=== PATIENT | male | born 1985 | race Caucasian/White ===

== ENCOUNTER 2020-07-16 04:00 | Emergency (ER) | payer OTHER ==
[~2020-07-16] VITALS: Ht 188 cm; Wt 127.0 kg
[~2020-07-16 04:00] MED LIST: CITA40TA12 PO; LISI1TAB23 PO; LISI1TAB39 PO; LORA-448 PO; METO-237 PO
--- NOTE | 2020-07-16 04:05 | NUR ---
ARRIVAL PT ARRIVED AMBULATORY TO ER 4 WITH C/O LEFT EYE PAIN. PT STATES GOT POWER STEERING FLUID IN EYE ON Friday07/14/20. STATES PAIN STARTED YESTERDAY AT 1900. LEFT EYE IS RED AND SWOLLEN. PT RATES PAIN 6-11/11. EDP NOTIFIED OF ARRIVAL.
[2020-07-16 04:06] VITALS: BP 155/96
[2020-07-16] MEDS ORDERED: TETRACAINE 0.5% EYE DROPS ONE (04:12)
[2020-07-16] MEDS ORDERED: FUL-GLO OP ONE (04:12)
--- NOTE | 2020-07-16 04:27 | ER.PDOC ---
General Chief Complaint: Eye Problems Stated Complaint: EYE PAIN Time seen by MD: 04:22 Source: patient Exam Limitations: no limitations History of Present Illness Initial Comments Foreign body sensation and left eye pain since last night. No eye discharge. No matting. Patient has flushed the left eye several times since last night. Timing/Duration: gradual Associated Symptoms: pian Location: left eye Severity: moderate Context: foreign body Where: home Allergies: Coded Allergies: vancomycin (Verified Allergy, Mild, RASH, 12/12/12) Cephalexin Monohydrate (Verified Adverse Reaction, NAUSEA VOMITING, 06/17/13) Home Meds Reported Medications Metoprolol Succinate (METOPROLOL SUCCINATE) 50 Mg Tab.er.24h, 50 MG PO DAILY 10/17/13 Lorazepam (ATIVAN) 1 Mg Tablet, 1 MG PO PRN for ANXIETY, TABLET 10/17/13 Lisinopril/Hydrochlorothiazide (LISINOPRIL-HCTZ 20-12.5 MG TAB) 1 Each Tablet, 1 EACH PO DAILY, TABLET 10/17/13 Citalopram Hydrobromide (CELEXA) 40 Mg Tablet, 40 MG PO DAILY, TABLET 10/17/13 Past Medical History Medical History: no pertinent history Surgical History: other Family History Significant Family History: no pertinent family hx Social History Smoking: non-smoker Alcohol Use: occassionally Drug Use: none Constitutional: no symptoms reported Eyes: see HPI Mouth: no symptoms reported Throat: no symptoms reported Respiratory: no symptoms reported Cardiovascular: no symptoms reported Gastrointestinal: no symptoms reported All Other Systems: Reviewed and Negative Physical Exam General Appearance: alert, no distress Visual Acuity: no globe trauma Eyelid: nml inspection Conjunctiva/Sclera: (L) injected Corneas: exam w/flurescein (L) (no corneal abrasion) EOM's: intact, no nystagmus Pupils: PERRL, nml accommodation Head/ENT: nml inspection, pharynx nml Skin Exam: Normal Color, Warm/Dry Neck/Back: nml inspection, painless ROM Resp/CVS: no resp distress, lungs clear, heart sounds nml, reg. rate & rhythm Abdomen: non-tender, no organomegaly NEURO/PSYCH: oriented X3, mood/effect nml Results/Orders Results/Orders Orders - KRYSTIAN ALLEN MD Fluorescein Sodium (Ful-Nataliya) (07/16/20 04:12) Tetracaine Hcl/Pf (Tetracaine 0.5% Eye D (07/16/20 04:12) Vital Signs Date Time Temp Pulse Resp B/P (MAP) Pulse Ox O2 Delivery O2 Flow Rate FiO2 07/16/20 04:06 98.4 77 18 155/96 (115) 98 C Pap 07/16/20 04:06 98.4 77 18 98 07/16/20 04:06 98.4 77 18 Progress Progress No foreign body seen. Counseled patient that he will need to follow-up with habitat conservation planner tomorrow. He voiced understanding. No matting or eye discharge. No signs of infection. ER DEPART Departure Time of Disposition: 04:25 Disposition: 01 HOME, SELF-CARE Impression: Primary Impression: Acute eye pain Additional Impression: Pain, eye, left Condition: Stable Referrals: PCP,UNKNOWN (PCP) PRIMARY CARE PROVIDER Additional Instructions: Follow-up with Batterboard Setter tomorrow Return to ED if worsening pain or concerns Duration or Time Spent with Pa: 10 min Problem Qualifiers KRYSTIAN ALLEN MD Jul 16, 2020 04:27
[2020-07-16 04:37] VITALS: BP 172/84
== END 2020-07-16 04:35 | disposition home or self-care (01) ==
LOC: ER 04:00
DX: H57.12 Ocular pain, left eye (principal); Z79.899 Other long term (current) drug therapy; Z88.1 Allergy status to other antibiotic agents
CPT/HCPCS: 99283

== ENCOUNTER 2022-01-14 09:51 | Emergency (ER) | payer SELFPAY ==
[~2022-01-14] VITALS: Ht 188 cm; Wt 122.5 kg
[~2022-01-14 09:51] MED LIST changes: -LISI1TAB23 PO; +LISI1TAB37 PO
[2022-01-14 10:02] VITALS: BP 150/92
--- NOTE | 2022-01-14 10:07 | NUR ---
Arrival Patient arrived ambulatory, does not seem in distress. Complains of left hand pain from injury that occured one hr ago at work. MD at bedside assessing, Vital taken as charted.
--- NOTE | 2022-01-14 10:08 | ER.PDOC ---
General Chief Complaint: Requesting Medical Care Stated Complaint: HAND INJURY Time seen by MD: 10:01 Source: patient History of Present Illness Initial Comments Using a heavy hammer on diesal truck. The hammer rebounded and hit dorso-lateral left hand Occurred: just prior to arrival Where: work Severity: moderate Exacerbated By: movement of Allergies: Coded Allergies: vancomycin (Verified Allergy, Mild, RASH, 12/12/12) Cephalexin Monohydrate (Verified Adverse Reaction, Unknown, NAUSEA VOMITING, 01/14/22) Home Meds Reported Medications Metoprolol Succinate (METOPROLOL SUCCINATE) 50 Mg Tab.er.24h, 50 MG PO DAILY 10/17/13 Lorazepam (ATIVAN) 1 Mg Tablet, 1 MG PO PRN for ANXIETY, TABLET 10/17/13 Lisinopril/Hydrochlorothiazide (LISINOPRIL-HCTZ 20-12.5 MG TAB) 1 Each Tablet, 1 EACH PO DAILY, TABLET 10/17/13 Citalopram Hydrobromide (CELEXA) 40 Mg Tablet, 40 MG PO DAILY, TABLET 10/17/13 Past Medical History Medical History: no pertinent history, other (anxiety) Surgical History: other Family History Significant Family History: no pertinent family hx Social History Drug Use: none Reviewed Nursing Reviewed: Vital Signs, Abn. Noted, Nursing Assessment Results/Orders Results/Orders Orders - PHILLIP DOUGLAS MD Xr Hand Lt (01/14/22 10:06) Ketorolac Tromethamine (Toradol) (01/14/22 11:30) Ketorolac Tromethamine (Toradol) (01/14/22 11:12) Vital Signs Date Time Temp Pulse Resp B/P (MAP) Pulse Ox O2 Delivery O2 Flow Rate FiO2 01/14/22 10:02 98.3 79 14 99 01/14/22 10:02 98.3 79 14 99 Room Air* 0 21 ER DEPART Departure Time of Disposition: 08:15 Disposition: 01 HOME / SELF CARE / HOMELESS Impression: Primary Impression: Contusion of left hand Condition: Stable Referrals: PCP,UNKNOWN (PCP) PRIMARY CARE PROVIDER Comments ice packs advil f/u with pcp Duration or Time Spent with Pa: 20 PHILLIP DOUGLAS MD Jan 14, 2022 10:08
[2022-01-14] MEDS ORDERED: TORADOL ONE (11:12)
[2022-01-14] MEDS ORDERED: TORADOL IM ONE (11:30)
--- NOTE | 2022-01-17 13:14 | DIREP ---
PROCEDURE: XRAY HAND MIN 3 VW-LT COMPARISON: None. INDICATIONS: Injury to LT Hand FINDINGS: BONES: Normal. JOINTS: Normal. SOFT TISSUES: Normal. OTHER: No additional findings. CONCLUSION: No acute osseus abnormality. Dictated by: Curtis Armendariz M.D. on 01/14/2022 at 10:24 AM T [facility]
== END 2022-01-14 11:50 | disposition home or self-care (01) ==
LOC: ER 09:51
DX: S69.90XA Unspecified injury of unspecified wrist, hand and finger(s), initial encounter (principal); F41.9 Anxiety disorder, unspecified; W22.8XXA Striking against or struck by other objects, initial encounter; Y93.89 Activity, other specified; Y99.0 Civilian activity done for income or pay; Y92.89 Other specified places as the place of occurrence of the external cause; Z88.1 Allergy status to other antibiotic agents
CPT/HCPCS: 99283; 96372; 73130; J1885